=== PATIENT | male | born 1980 | race Caucasian/White ===

== ENCOUNTER 2020-02-02 05:57 | Observation (INO) | payer BC ==
[~2020-02-02] VITALS: Ht 172.7 cm; Wt 92.4 kg
--- NOTE | 2020-02-02 06:02 | NUR ---
AMBULATED TO ROOM WITH STEADY GAIT.
--- NOTE | 2020-02-02 06:45 | NUR ---
GASTROGRAFFFIN PO BEGUN PT REPORT TO NURSE CROWELL
--- NOTE | 2020-02-02 06:51 | NUR ---
REPORT FROM JANNA, RN; PT STARTED ON GASTROGRAFIN AND TEACHING COMPLETED; VERBALIZES UNDERSTANDING; PT DENIES ANY NEEDS AT THIS TIME; CALL LIGHT WITHIN REACH; WILL CONTINUE TO MONITOR
[2020-02-02 06:58] LABS: URINE BILIRUBIN - DIPSTICK NEGATIVE (NEGATIVE); URINE BLOOD DIPSTICK NEGATIVE (NEGATIVE); URINE COLOR YELLOW; URINE GLUCOSE - DIPSTICK NEGATIVE (NEGATIVE); URINE KETONE NEGATIVE (NEGATIVE); URINE LEUK ESTERASE NEGATIVE (NEGATIVE); URINE NITRITE - DIPSTICK NEGATIVE (Negative); URINE PROTEIN - DIPSTICK NEGATIVE (NEG-TRACE); URINE SPECIFIC GRAVITY 1.015; URINE UROBILINOGEN - DIPSTICK 0.2 E.U./dL (0.2)
[2020-02-02 07:28] LABS: ALBUMIN 4.3 g/dL (3.2-5.0); ALKALINE PHOSPHATASE 102 u/l (38-126); AMYLASE 69 u/l (30-110); ANION GAP 14 (6-22 (CALC)); BILIRUBIN, TOTAL 1.8 mg/dL (0.0-1.4); BUN 6 mg/dL (9-20); BUN/CREATININE RATIO 8 (12-20 (CALC)); CARBON DIOXIDE 23 mmol/l (22-30); CHLORIDE 99 mmol/l (95-108); CREATININE 0.7 mg/dL (0.7-1.3); GFR > 60 ML/MIN (>=60 (CALC)); GFR FOR AFR.AMER. > 60 ML/MIN (>=60 (CALC)); LIPASE 673 u/l (23-300); POTASSIUM 3.2 mmol/l (3.5-5.1); SGOT/AST 99 u/l (17-59); SODIUM 132 mmol/l (137-146); TOTAL PROTEIN 7.6 g/dL (6.3-8.2)
--- NOTE | 2020-02-02 07:45 | NUR ---
pt completed po contrast at this time; vss; pt advised of continued wait time; will continue to monitor
[2020-02-02 08:03] LABS: IMMATURE GRANULOCYTES 0.4 % (0.0-5.0); MEAN CELL VOLUME 93.2 fL CALC (80.0-100.0); MEAN CORPUSCULAR HGB 31.8 pG CALC (26.0-32.0); MEAN CORPUSCULAR HGB CONC 34.1 g/dL CAL (32.0-36.0); NEUT# 8.92 thou/uL (1.82-7.42); RED BLOOD COUNT 4.72 mill/uL (4.70-6.10); RED CELL DISTRI WIDTH 12.5 % (11.5-15.5)
--- NOTE | 2020-02-02 08:35 | NUR ---
PT TO RADIOLOGY IN STABLE CONDITION
--- NOTE | 2020-02-02 09:00 | NUR ---
DR STOVALL AT BEDSIDE TO ASSESS PT AND DICUSS POC; PT MEDICATED PER MAR; PT DENIES ANY NEED FOR PAIN MEDICATIONS AT THIS TIME
--- NOTE | 2020-02-02 10:00 | NUR ---
DR STOVALL AT BEDSIDE TO DISCUSS FINDINGS AND POC; PT DENIES ANY NEEDS AT THIS TIME; VSS;
--- NOTE | 2020-02-02 10:40 | NUR ---
PT TO US IN STABLE CONDITION
--- NOTE | 2020-02-02 11:12 | NUR ---
Admission Note Report Given to: BAO GALICIA Transported by: X Wheelchair Stretcher Transported with: X Nurse Transporter X Patent IV O2 Alumni Relations Officer Location: ICU X [facility]
--- NOTE | 2020-02-02 11:12 | NUR ---
PT TO MED SURG ROOM 262 VIA WHEELCHAIR ACCOMAPNIED BY ER NURSE. PT AMBULATORY FROM WHEELCHAIR TO BED. PT IS ALERT AND ORIENTED X3. ADMISSION ASSESSMENT COMPLETED AT THIS TIME. IV PATENT X1. ORIENTED PT TO ROOM AND CALL LIGHT SYSTEAM. CALL LIGHT IN REACH. WILL CONTINUE TO MONITOR.
[2020-02-02 11:28] VITALS: BP 132/81
--- NOTE | 2020-02-02 12:17 | NUR ---
PT SITTING UP IN BED EATING LUNCH. RESP ARE EVEN AND UNLABORED. NO DISTRESS NOTED. CALL LIGHT IN REACH. WILL CONTINUE TO MONITOR.
[2020-02-02 14:50] VITALS: BP 119/74
--- NOTE | 2020-02-02 15:53 | NUR ---
PT RESTING IN BED WATCHING TV. RESP ARE EVEN AND UNLABORED. NO DISTRESS NOTED. CALL LIGHT IN REACH. WILL CONTINUE TO MONITOR.
[2020-02-02 19:06] VITALS: BP 132/78
--- NOTE | 2020-02-02 19:30 | NUR ---
ASSESSMENT COMPLETED; IV SITE PATENT AND ORDERED IVF INFUSING WELL. NO DISTRESS NOTED; DENIES NEEDS/PAIN AT THIS TIME. ENCOURAGED TO CALL FOR ANY NEEDS. CALL LIGHT IS IN REACH.
--- NOTE | 2020-02-03 00:10 | NUR ---
SITTING UP IN BED WITH NO DISTRESS NOTED; DENIES NEEDS/PAIN. VOICES NO CONCERNS. ENCOURAGED TO CALL FOR ANY NEEDS. CALL LIGHT IS IN REACH. WILL CONTINUE TO MONITOR.
--- NOTE | 2020-02-03 04:00 | NUR ---
PT. RESTING IN BED WITH NO DISTRESS NOTED; DENIES NEEDS.
[2020-02-03 04:47] LABS: HEMATOCRIT 42.1 % (39.0-50.0); HEMOGLOBIN 13.5 g/dl (14.0-18.0); MEAN CELL VOLUME 97.7 fL CALC (80.0-100.0); MEAN CORPUSCULAR HGB 31.3 pG CALC (26.0-32.0); MEAN CORPUSCULAR HGB CONC 32.1 g/dL CAL (32.0-36.0); RED BLOOD COUNT 4.31 mill/uL (4.70-6.10); RED CELL DISTRI WIDTH 12.3 % (11.5-15.5)
[2020-02-03 05:12] LABS: CHOLESTEROL HDL RATIO 4.8 (<4.4 (CALC))
[2020-02-03 05:13] LABS: ANION GAP 10 (6-22 (CALC)); BUN 4 mg/dL (9-20); BUN/CREATININE RATIO 7 (12-20 (CALC)); CARBON DIOXIDE 25 mmol/l (22-30); CHLORIDE 104 mmol/l (95-108); CREATININE 0.6 mg/dL (0.7-1.3); GFR > 60 ML/MIN (>=60 (CALC)); GFR FOR AFR.AMER. > 60 ML/MIN (>=60 (CALC)); LIPASE 551 u/l (23-300); POTASSIUM 4.3 mmol/l (3.5-5.1); SODIUM 135 mmol/l (137-146)
[2020-02-03 05:19] VITALS: BP 135/89
--- NOTE | 2020-02-03 06:10 | NUR ---
RESTING IN BED WITH NO DISTRESS NOTED; DENIES NEEDS/PAIN. ENCOURAGED TO CALL FOR ANY NEEDS.
--- NOTE | 2020-02-03 07:15 | NUR ---
REPORT RECEIVED FROM BAO FERNANDEZ. PT SITTING UP IN BED; ALERT AND ORIENTED. DENIES PAIN TO ABDOMEN. RESPIRATIONS EVEN AND UNLABORED ON ROOM AIR. LUNGS CLEAR. HYPERACTIVE BS X 4. VSS. PLAN OF CARE REVIEWED. PT ENCOURAGED TO VERBALIZE CONCERNS. STATES UNDERSTANDING. SAFETY MEASURES IN PLACE. CALL LIGHT WITHIN REACH.
[2020-02-03 07:47] VITALS: BP 132/84
--- NOTE | 2020-02-03 11:00 | NUR ---
PT REQUESTING SHOWER; SHOWER SET UP AND PT BATHED INDEPENDENTLY. INDEPENDENT IN ROOM.
[2020-02-03] MEDS ORDERED: LORTAB5 PO (11:50)
[2020-02-03] MEDS ORDERED: PROTONIX40 MG PO (11:50)
--- NOTE | 2020-02-03 12:27 | NUR ---
IV site discontinued, cath intact. No edema , no redness, voices no discomfort.
--- NOTE | 2020-02-03 12:30 | NUR ---
Discharge instructions given. Patient verbalizes understanding of same. Discharged in stable condition via Ambulatory to Home. All belongings sent with pt.
== END 2020-02-03 12:32 | disposition home or self-care (01) | DRG 440 ==
LOC: ED 05:57 → ED-I 09:41 → ED 09:53 → MS2 09:54
PROVIDERS: Family Medicine; Nurse Practitioner Family; ADMIT Internal Medicine; ATTEND Internal Medicine
DX: K85.90 Acute pancreatitis without necrosis or infection, unspecified (principal); E87.6 Hypokalemia; E78.1 Pure hyperglyceridemia; K76.0 Fatty (change of) liver, not elsewhere classified; Z20.828 Contact with and (suspected) exposure to other viral communicable diseases
CPT/HCPCS: G0378; Q9967; S0164